=== PATIENT | male | born 2005 | race Caucasian/White ===

== ENCOUNTER 2024-10-13 09:09 | Outpatient (REF) | payer OTHER, SELFPAY ==
--- NOTE | ~2024-10-13 | XR_ITS ---
CLINICAL HISTORY: Z91.81 - History of falling 6 views cervical spine with flexion and extension Comparison: None Findings: No fractures or listhesis. Normal facets. Disc spaces are maintained. Uncinate and transverse processes intact. No bony neuroforaminal compromise. Lordotic curvature is preserved. Normal bone mineralization. No widening of the retropharyngeal soft tissues. No translation on flexion and extension views. Lung apices unremarkable. Impression: 1. No fractures or listhesis. 2. No translation on flexion extension views. This document has been electronically signed by: Calvin Bliss MD on 10/13/2024 10:22:52
== END 2024-10-13 09:10 | disposition home or self-care (01) ==
LOC: HO.HMGCX 09:09
PROVIDERS: Visit Provider Nurse Practitioner Family
DX: M54.2 Cervicalgia (principal); Z87.820 Personal history of traumatic brain injury; Z91.81 History of falling
CPT/HCPCS: 72052; 99212

== ENCOUNTER 2024-10-13 09:09 | Outpatient (AMB) | payer MEDICAID, SELFPAY ==
[2024-10-13 09:16] VITALS: BP 100/60; PULSE 79; RESP 15; TEMP 36.7; O2SAT 99; BMI 20.1
--- NOTE | 2024-10-13 09:16 | MHC.OFFWIV ---
Intake Vital Signs 10/13/24 09:16 Height 5 ft 8 in Weight 132 lb BMI 20.1 BP 100/60 Blood Pressure Location Lt brachial Position Sitting Respiration 15 Pulse 79 Pulse Source Pulse Oximeter Temp 98.0 F Temp Source Oral Pulse Oximetry (%) 99 Oxygen Delivery Method Room Air Intake Visit Reasons: [employer] neck pain Intake Note: Pt is here today c/o neck pain Patient Tobacco Use Status: Never used Tobacco Allergies No Known Allergies Allergy (Verified 10/13/24 09:26) Medication List - Last Reconciled 10/13/24 by NANCY Alford- No Known Home Meds HPI HPI Comments History of Present Illness Details History - The patient is a 19-year-old male presenting with neck pain. - Onset occurred earlier this week. - Pain is worsening, especially with quick movements and work activities. - Pain is sharp, located at the top of the neck downward. - Pain starts fine in the morning but worsens at work. - The patient has a history of concussion from a fall last year. And LROM of neck as a result. - Reported no relief from ibuprofen and topical treatments (lidocaine patch) - No numbness or tingling in arms. No weakness. - Swelling in neck and shoulders noted during work., worse on the R side. Review of Systems - Musculoskeletal: Reports neck pain, denies any numbness or tingling in arms. - Neurological: Denies headaches. - General: Denies fever and chills. Physical Exam General: Awake, alert. No apparent distress Eyes: Sclera and conjunctiva clear bilaterally, PERRLA, EOMI Neck: No c spine tenderness, Limited extension (baseline) otherwise full ROM. Paraspinal pain noted w/ ear to shoulder on the R. Neuro: Normal strength, tone, reflexes and pulses of ext x 4. Results Pending Discussion Notes I discussed with the patient that his symptoms suggest a musculoskeletal origin of neck pain, potentially involving the paraspinal muscles. Considering his history of a previous concussion and fall, we need to rule out any structural abnormalities with a neck X-ray, which will be performed today. I explained the importance of avoiding mixing diclofenac with other NSAIDs like ibuprofen, stressing the necessity of consistency in taking the medication twice daily with food for one week before switching to as needed. Additionally, I provided a muscle relaxant to alleviate muscle tightness, with instructions to avoid usage during work due to possible drowsiness and weakness. I emphasized reaching out for a primary care appointment Nanci/michele info provided, as he does not have a PCP at this time. Furthermore, I explained enrollment in our patient portal to access test results and maintain communication for any necessary follow-ups. Patient was given time to ask questions. All questions were answered to their satisfaction. Assessment and Plan 1. Neck Pain - X-ray to rule out structural issues. - Diclofenac prescribed, avoid other NSAIDs. - Muscle relaxant provided for as-needed use away from work. 2. History of Concussion - Neck movement restriction since fall noted. Patient Instructions - Take diclofenac twice a day with food for one week, then as needed. - Do not mix diclofenac with Aleve or ibuprofen. - Use the muscle relaxer as needed when not working. - Follow up with a primary care provider for further neck and back evaluation. - Enroll in the patient portal for test results and updates. Consent Patient was informed and verbally consented to the use of an ambient scribe for clinic note documentation during this visit. Total time spent caring for the patient today was 30 minutes. This includes time spent before the visit reviewing the chart, time spent during the visit, and time spent after the visit on documentation, reviewing laboratory results, diagnostic imaging, medications, performing a medically necessary evaluation, counseling on diagnoses, care coordination, ordering appropriate tests, ordering appropriate medications, review of tests performed by other providers, reporting test results with the patient, communication with other healthcare providers. [facility] Social History Patient Tobacco Use Status: Never used Tobacco Physical Exam Vital Signs: Last Vital Signs Temp 98.0 F 10/13/24 09:16 Pulse 79 10/13/24 09:16 Resp 15 10/13/24 09:16 BP 100/60 10/13/24 09:16 Pulse Ox 99 10/13/24 09:16 Oxygen Delivery Method Room Air 10/13/24 09:16 BMI result Body Mass Index 20.1 Assessment & Plan Assessment & Plan (1) Neck pain: Code(s): M54.2 - Cervicalgia (2) History of concussion: Code(s): Z87.820 - Personal history of traumatic brain injury (3) History of fall: Code(s): Z91.81 - History of falling Plan . Orders: Orders XR cervical spine w flex/ext Today M54.2 - Cervicalgia, Z87.820 - Personal history of traumatic brain injury, Z91.81 - History of falling PT Evaluation and Treatment Today M54.2 - Cervicalgia, Z87.820 - Personal history of traumatic brain injury, Z91.81 - History of falling Medications: New diclofenac potassium 25 mg PO BID 30 caps 0RF baclofen 5 mg PO BID PRN 14 tabs 0RF muscle spasm Patient Instructions: [facility] for the patient portal/results Patient Instructions - Take diclofenac twice a day with food for one week, then as needed. - Do not mix diclofenac with Aleve or ibuprofen. - Use the muscle relaxer as needed when not working. - Follow up with a primary care provider for further neck and back evaluation. - Enroll in the patient portal for test results and updates. - Physical Therapy ordered at [facility] Coding Level of Care Code Est Pt Level 4 (36201) Diagnoses Neck pain M54.2 History of concussion Z87.820 History of fall Z91.81
== END 2024-10-13 09:52 | disposition home or self-care (01) ==
PROVIDERS: Visit Provider Nurse Practitioner Family
DX: M54.2 Cervicalgia (principal); Z87.820 Personal history of traumatic brain injury; Z91.81 History of falling

== ENCOUNTER → 2024-10-13 09:46 | Outpatient (BNV) | payer OTHER, SELFPAY | PROVIDERS: Visit Provider Radiology Diagnostic Radiology | DX: M54.2 Cervicalgia (principal); Z91.81 History of falling | CPT/HCPCS: 72052 ==